=== PATIENT | female | born 1990 | race African-American/Black ===

== ENCOUNTER 2024-01-07 08:17 | Emergency (ER) | payer OTHER, SELFPAY ==
[2024-01-07 08:26] VITALS: BP 98/84; PULSE 113; RESP 16; TEMP 36.2; O2SAT 100
--- NOTE | 2024-01-07 08:27 | ED.URI ---
HPI - URI/Sore Throat General Chief Complaint: Upper Respiratory Infection Stated Complaint: SORE THROAT/CHILLS/BODY ACHES/CONGESTION Time Seen by Provider: 01/07/24 08:35 History of Present Illness HPI Narrative: 33-year-old female presented for complaint of sore throat for 3 days. Endorses neck pain and mild nasal congestion and subjective fever. Denies cough, shortness of breath, wheezing, nausea, vomiting or lethargy. Has not taken anything for symptoms. Denies sick contacts. Related Data Allergies Allergy/AdvReac Type Severity Reaction Status Date / Time No Known Allergies Allergy Verified 01/07/24 08:43 Review of Systems Review of Systems: CONSTITUTIONAL: reports body aches, fever, chills, or sweats. EYES: Denies visual changes, redness, or discharge. ENT: reports rhinorrhea, congestion, sore throat CARDIOVASCULAR: Denies chest pain, palpitations, or edema. RESPIRATORY: Denies dyspnea. GASTROINTESTINAL: Denies abdominal pain, nausea, vomiting, or diarrhea. SKIN: Denies rash, itching, or wounds. MUSCULOSKELETAL: Denies back pain, joint pain, or myalgia. NEUROLOGIC: Denies headache Exam Narrative: GENERAL: mildly Ill-appearing, no acute distress. EYES: conjunctivae clear ENT: Mucous membranes moist. TMs pearly phillips with normal light reflex bilaterally; no tragal tenderness. Oropharynx erythematous, Tonsils enlarged with exudate. No drooling, no hoarseness, no trismus, uvula midline. No tripod positioning, hot potato voice, or soft palate swelling. NECK: Supple. bilateral anterior cervical lymphadenopathy CHEST: Clear to auscultation, breath sounds equal. No respiratory distress, speaks in full sentences. HEART: Regular rate and rhythm. No murmur heard. SKIN: Warm, dry, no rash. NEURO: Alert and oriented x3. Course Course Emergency Course: Patient is aware of diagnosis, understands and agrees to treatment plan. Anticipatory guidance given. Patient agrees to follow-up as directed and is aware of reasons to seek care at the emergency department. Portions of this record may have been created with voice recognition software Level of Care: Express Care Visit MDM - URI/Sore Throat MDM Narrative Medical decision making narrative: POS strep result reviewed with pt. Advise supportive treatments. Patient is appropriate for outpatient treatment and follow-up. Differential Diagnosis Differential diagnosis: Likely upper respiratory infection, viral infection and pharyngitis Discharge Plan Discharge Clinical Impression: Strep pharyngitis Patient Disposition: Home, Self-Care Condition: Stable Instructions: Antibiotic Form, Strep Throat (DC) Additional Instructions: - Take the antibiotic as directed. Fever and sore throat typically resolve within one to three days. Most patients can return to work, school, or daycare after 12 to 24 hours of antibiotic therapy, provided you are fever free and otherwise well. -Eat and drink things that are easy to swallow, like soft foods, cool liquids, tea with honey, or popsicles . -Salt water gargles and/or may use topical anesthetic ( Chloraseptic spray) or lozenges to relieve dryness or throat pain -Alternate Tylenol and ibuprofen as needed for pain and fever as directed. -Frequent hand washing or hand civil engineering designer is one of the best ways to prevent spread of infection. Throw away the toothbrush after 24hours of antibiotic. -Follow up with primary care provider in 2-3 days if condition is not improving -Go to the ER if you have trouble breathing, cannot drink enough fluids, have muffled voice or drooling, difficulty opening your mouth, or severe swelling. Prescriptions: New amoxicillin 500 mg tablet 1,000 mg PO DAILY 10 Days Qty: 20 0RF Follow-up/Referrals: Zaid,Deann Leggett MD [Primary Care Provider] - Stand Alone Forms: Work/School Release IP
[2024-01-07 08:52] LABS: EDINFLUASCREEN Negative; EDINFLUBSCREEN Negative; EDSTREPNEGPOS1 Positive
== END 2024-01-07 08:52 | disposition home or self-care (01) ==
PROVIDERS: Emergency Provider Nurse Practitioner Family; PCP Internal Medicine
DX: J02.0 Streptococcal pharyngitis (principal); Z20.822 Contact with and (suspected) exposure to COVID-19
CPT/HCPCS: 87426; 87804; 87880; 99203; G0463

== ENCOUNTER 2024-02-05 08:09 | Emergency (ER) | payer OTHER, SELFPAY ==
--- NOTE | 2024-02-05 08:23 | ED.FEMALEGU ---
HPI - Female Genitourinary General Chief complaint: Urogenital-Female Stated complaint: Uti Symptoms Source: patient and RN notes reviewed Mode of arrival: ambulatory Limitations: no limitations History of Present Illness HPI Narrative: 33 y/o female presented for c/o pain earlier this perez, under left rib radiating to the back. States pain was dull but strong. Took Tylenol and Gas-x and heating pad. Reports one episode of vomiting this morning. However she states she has been taking semaglutide and endorses associated nausea and constipation this week; increased her dose 2 weeks ago. Reports several episodes of vomiting 4 days ago. Also reports burning with urination x3 days. took azo, last dose last night. LBM this morning, small. Denies hematuria, flank pain, diarrhea, fevers or chills. Related Data Home Medications Medication Instructions Recorded Confirmed brexpiprazole 0.5 mg tablet mg 02/05/24 (Rexulti) duloxetine 60 mg capsule,delayed mg PO 02/05/24 release etonogestrel 0.12 mg-ethinyl vag ring vaginal 02/05/24 estradiol 0.015 mg/24 hr vaginal ring (EnilloRing) omeprazole 20 mg capsule,delayed mg 02/05/24 release ondansetron 4 mg disintegrating mg 02/05/24 tablet Allergies Allergy/AdvReac Type Severity Reaction Status Date / Time No Known Allergies Allergy Verified 02/05/24 08:19 Review of Systems Review of Systems: CONSTITUTIONAL: Denies body aches, fever, chills, or sweats. CARDIOVASCULAR: Denies chest pain, palpitations, or edema. RESPIRATORY: Denies cough or dyspnea. GASTROINTESTINAL: reports abdominal pain Denies nausea, vomiting, or diarrhea. GENITOURINARY: Reports dysuria, denies frequency, urgency, hematuria, flank pain SKIN: Denies rash, itching, or wounds. MUSCULOSKELETAL: Denies back pain or myalgia. PMFSH Comments At time of signature, I have reviewed and agree with nursing past medical, surgical, social and family history unless otherwise noted. Please see nursing chart for further information. There is no relevant family history pertinent to the presenting complaint Exam Narrative: GENERAL: Well-appearing ENT: Mucous membranes pink and moist. NECK: Normal AROM. Supple. CHEST: No respiratory distress. Clear to auscultation. HEART: Regular rate and rhythm. ABDOMEN: Soft, nontender, nondistended, normal active bowel sounds. No CVA tenderness SKIN: Warm, dry, no rash. NEURO: No focal deficits. Alert and oriented x3. Gait steady. PSYCH: Normal affect. Course Course Emergency Course: Patient is aware of diagnosis, understands and agrees to treatment plan. Anticipatory guidance given. Patient agrees to follow-up as directed and is aware of reasons to seek care at the emergency department. Portions of this record may have been created with voice recognition software Level of Care: Express Care Visit Vital Signs Vital signs: Vital Signs Temperature 97.3 F L 02/05/24 08:25 Pulse Rate 77 02/05/24 08:25 Respiratory Rate 16 02/05/24 08:25 Blood Pressure 113/97 H 02/05/24 08:25 Pulse Oximetry 98 02/05/24 08:25 Temperature 97.3 F L 02/05/24 08:25 Pulse Rate 77 02/05/24 08:25 Respiratory Rate 16 02/05/24 08:25 Blood Pressure 113/97 H 02/05/24 08:25 Pulse Oximetry 98 02/05/24 08:25 Reviewed MDM - Female Genitourinary MDM Narrative Medical decision making narrative: Discussed physical exam findings and urine results. No abdominal pain or flank pain at this time. Will culture urine. Advised supportive measures and signs/symptoms to go to the ER. Pt is appropriate for outpt treatment and f/u. Differential Diagnosis Differential diagnosis: Likely urinary tract infection, bacterial vaginosis, cystitis and other Discharge Plan Discharge Clinical Impression: Dysuria Patient Disposition: Home, Self-Care Condition: Stable Instructions: Antibiotic Form, Urinary Tract Infection in Women (ED) [facility]
[2024-02-05 08:25] VITALS: BP 113/97; PULSE 77; RESP 16; TEMP 36.3; O2SAT 98
[2024-02-05 09:12] LABS: EDUAAPPEAR Cloudy; EDUABILI 1+ (Negative); EDUABLOOD Negative (Negative); EDUACOLOR1 Orange; EDUAGLUCOSE Negative (Negative); EDUAKETONE Negative (Negative); EDUALEUKO 1+ (Negative); EDUANITRATE Negative (Negative); EDUAPH 7.5; EDUAPROTEIN 1+ (Negative); EDUAUROBILI 0.2
== END 2024-02-05 08:54 | disposition home or self-care (01) ==
PROVIDERS: Emergency Provider Nurse Practitioner Family; PCP Internal Medicine
DX: R30.0 Dysuria (principal); E28.2 Polycystic ovarian syndrome
CPT/HCPCS: 81003; 87086; 99213; G0463

== ENCOUNTER 2024-02-06 12:33 | Emergency (ER) | payer OTHER, SELFPAY ==
--- NOTE | ~2024-02-06 | CT_ITS ---
EXAMINATION: CT abdomen pelvis w con DATE: 02/06/2024 16:44 INDICATION: Left upper quadrant abdominal pain. TECHNIQUE: Computed tomography (CT) of the abdomen and pelvis was performed with 100 mL Omnipaque 350 intravenous contrast. Automated exposure control and iterative reconstruction technique were employe d. The dose-length product was 1366.44 mGy-cm. COMPARISON: None. FINDINGS: The visualized portions of the lung bases demonstrate mild atelectasis. No pleural effusion . The heart size is normal. No pericardial effusion. There are areas of hypodensity in the liver, lik sergio steatosis. The gallbladder, spleen, pancreas, adrenal glands, and kidneys are normal. There is a ring-shaped device in the vagina. There are no dilated loops of bowel. The cecum is in the left upper quadrant. The appendix is not visualized. There are no pathologically enlarged lymph nodes. There is no free intraperitoneal fluid. The bones are unremarkable. IMPRESSION: 1. No specific etiology for the patient's symptoms. Reviewed, dictated and finalized at location A.
[2024-02-06 12:39] VITALS: BP 134/91; PULSE 95; RESP 16; TEMP 36.6; O2SAT 98
[2024-02-06 15:12] LABS: Basophils Absolute Auto 0.1 K/mm3 (0.0-0.1); Basophils Percent Auto 0.6 % (0.2-1.2); Eosinophils Absolute Auto 0.8 K/mm3 (0-0.3); Eosinophils Percent Auto 6.1 % (0-4.4); Hematocrit 38.9 % (37.0-47.0); Hemoglobin 12.4 g/dL (12.0-15.0); Immature Granulocyte Absolute 0.04 K/mm3 (0.00-0.031); Immature Granulocyte Percent A 0.3 % (0-0.5); Lymphocytes Absolute Auto 4.06 K/mm3 (0.9-3.2); Lymphocytes Percent Auto 33.1 % (18.3-44.2); Mean Corpuscular HGB Conc 31.9 g/dl (32-36); Mean Corpuscular Volume 84.7 fl (80-100); Mean Platelet Volume 11.2 fl (7.4-10.4); Monocytes Absolute Auto 0.4 K/mm3 (0.1-0.6); Monocytes Percent Auto 3.1 % (2.6-8.5); Neutrophils Percent Auto 56.8 % (45.5-73.1); Platelet Count Result 371 k/mm3 (150-375); Red Blood Count 4.59 M/mm3 (4.2-5.4); Red Cell Distribution Width 13.7 % (11.5-14.5); White Blood Count 12.3 K/mm3 (4.5-10.0)
[2024-02-06 15:22] LABS: Add Urine Microscopic? YES; Appearance Urine Clear (Clear); Bacteria Urine 4+ /hpf; Bilirubin Urine Negative (Negative); Blood Urine Negative (Negative); Color Urine Yellow (Yellow); Glucose Urine UA Negative (Negative); Ketones Urine Negative (Negative); Leukocyte Esterase Ur Trace LEU/UL (Negative); Nitrate Urine Positive (Negative); Non Pathogenic Casts 0-2; Protein Urine Negative (Negative); RBC Urine 0-2 /hpf (0-2); Squamous Epithelial Cell Urine Occasional /hpf (Few); pH Urine 6.5 (5.0-9.0)
[2024-02-06 15:25] LABS: Magnesium 2.1 mg/dL (1.6-2.3)
[2024-02-06 15:26] LABS: Alanine Aminotransferase 88 U/L (6-35); Albumin Level 4.2 g/dL (3.5-5.1); Alkaline Phosphatase 209 U/L (38-126); Anion Gap 8 mmol/L (4-12); Aspartate Amino Transferase 68 U/L (14-36); Bilirubin,Total 0.4 mg/dL (0.2-1.3); Blood Urea Nitrogen 6 mg/dL (7-17); Calcium 8.9 mg/dL (8.4-10.2); Carbon Dioxide 28 mmol/L (22-30); Chloride 100 mmol/L (98-107); Estimated CRCL calculation 109 ml/min; Estimated Glomerular Filt Rate > 60; Glucose 104 mg/dL (65-110); Lipase 66 U/L (23-300); Potassium 3.7 mmol/L (3.4-5.0); Sodium 136 mmol/L (137-145)
--- NOTE | 2024-02-06 15:36 | ED.GENADULT ---
HPI - General Adult General Chief complaint: Nausea/Vomiting/Diarrhea Stated complaint: Nausea, vomiting Time Seen by Provider: 02/06/24 15:11 History of Present Illness HPI narrative: Patient is a 33-year-old female who presents to the emergency department this afternoon complaining of nausea and vomiting for the past 5 days. Patient states that she is currently on Rebelsus for wear oz and had her dose increased approximately 3 weeks ago. Two weeks ago she noticed that her nausea which she has been having since starting this medication 3 months ago has been getting worse and on Friday she started to have a vomiting episodes. Patient went to an urgent care on Friday and was prescribed Zofran but has not noticed much improvement of her nausea/vomiting. Denies any chance of. Patient states that she has been having some left upper quadrant abdominal pain radiating to her left back as well. States that she has been having some mild dysuria and the increasing urinary frequency which was concerning for possible UTI and urinalysis at the urgent care few days ago revealed some bacteriuria and urine was sent for culture, patient was not started on antibiotic until culture results per her request as she was concerned that the antibiotics would cause her more of an upset stomach. Denies any fevers or chills at home or any sick contacts at home. No additional symptoms or concerns at this time. Related Data Home Medications Medication Instructions Recorded Confirmed brexpiprazole 0.5 mg tablet 0.5 mg PO DAILY 02/05/24 02/05/24 (Rexulti) duloxetine 60 mg capsule,delayed 60 mg PO BID 02/05/24 02/05/24 release etonogestrel 0.12 mg-ethinyl 1 vag ring vaginal MONTHLY 02/05/24 02/05/24 estradiol 0.015 mg/24 hr vaginal ring (EnilloRing) omeprazole 20 mg capsule,delayed 20 mg PO DAILY 02/05/24 02/05/24 release ondansetron 4 mg disintegrating 4 mg PO PRN PRN Nausea 02/05/24 02/05/24 tablet semaglutide 7 mg tablet (Rybelsus) 7 mg PO DAILY 02/05/24 02/05/24 Allergies Allergy/AdvReac Type Severity Reaction Status Date / Time No Known Allergies Allergy Verified 02/06/24 16:13 Review of Systems Review of Systems: All systems are reviewed and are negative unless stated otherwise in the HPI. Exam Narrative: General: Alert, awake, afebrile, in no acute distress. HEENT: PERRL, no rhinorrhea, no post nasal drip, oropharynx clear. Cardiovascular: Regular rate and rhythm, no murmurs, rubs or gallops, no peripheral edema. Respiratory: Clear to auscultation bilaterally, no tachypnea, no wheezing, no rhonchi, no rubs, no respiratory distress. Abdomen: Soft, nontender, nondistended, no rebound, no guarding, no peritoneal signs. Musculoskeletal: No joint swelling or deformity, normal muscle tone. Skin: No rashes or petechia, no signs of infection. Neurological: Alert and oriented to person, place, and time. Follows all commands. No focal deficits, speech is clear and fluent. Course Vital Signs Vital signs: Vital Signs Temperature 97.9 F 02/06/24 12:39 Pulse Rate 95 02/06/24 12:39 Respiratory Rate 16 02/06/24 12:39 Blood Pressure 134/91 H 02/06/24 12:39 Pulse Oximetry 98 02/06/24 12:39 Oxygen Delivery Room Air 02/06/24 12:39 Temperature 97.9 F 02/06/24 12:39 Pulse Rate 83 02/06/24 16:13 Respiratory Rate 18 02/06/24 16:13 Blood Pressure 142/89 H 02/06/24 16:13 Pulse Oximetry 100 02/06/24 16:13 Oxygen Delivery Room Air 02/06/24 12:39 Medical Decision Making MDM Narrative Medical decision making narrative: The patient was evaluated by myself in the emergency department. History is obtained from patient who is an independent historian and physical exam was performed. External medical records were reviewed at this time. IV was established and pertinent tests were ordered. Patient was administered 1 L IV fluid bolus with normal saline. Patient is currently denies any nausea or
[2024-02-06 15:50] LABS: SPREG INTERNAL CONTROL Positive; Serum Qual hCG NEG
[2024-02-06 16:13] VITALS: BP 142/89; PULSE 83; RESP 18; O2SAT 100
[2024-02-06] MEDS: SODIUM CHLORIDE 0.9% IV 1,000 ML 999 ML IV CONT (16:48)
--- NOTE | 2024-02-06 17:24 | ED.GENADULT ---
HPI - General Adult General Chief complaint: Nausea/Vomiting/Diarrhea Stated complaint: Nausea, vomiting Time Seen by Provider: 02/06/24 15:11 History of Present Illness HPI narrative: Patient is a 33-year-old female who presents to the emergency department this afternoon complaining of nausea and vomiting for the past 4 days. Patient states that she is currently on Rebelsus for weight loss and started taking this medication approximately 3 months ago. 2-3 weeks ago her dose was increased and patient states that ever since she was started this medication she has been suffering from nausea but the vomiting did not start until earlier this week on Friday. Patient is currently prescribed Zofran to help with the nausea and vomiting but states that it has not been helping significantly. Patient states that on Friday she started to have some left upper quadrant abdominal pain radiating to her back. Denies any similar symptoms in the. Otherwise she denies any additional symptoms or concerns at this time. Related Data Home Medications Medication Instructions Recorded Confirmed brexpiprazole 0.5 mg tablet 0.5 mg PO DAILY 02/05/24 02/05/24 (Rexulti) duloxetine 60 mg capsule,delayed 60 mg PO BID 02/05/24 02/05/24 release etonogestrel 0.12 mg-ethinyl 1 vag ring vaginal MONTHLY 02/05/24 02/05/24 estradiol 0.015 mg/24 hr vaginal ring (EnilloRing) omeprazole 20 mg capsule,delayed 20 mg PO DAILY 02/05/24 02/05/24 release ondansetron 4 mg disintegrating 4 mg PO PRN PRN Nausea 02/05/24 02/05/24 tablet semaglutide 7 mg tablet (Rybelsus) 7 mg PO DAILY 02/05/24 02/05/24 Allergies Allergy/AdvReac Type Severity Reaction Status Date / Time No Known Allergies Allergy Verified 02/06/24 16:13 Review of Systems Review of Systems: All systems are reviewed and are negative unless stated otherwise in the HPI. Exam Narrative: General: Alert, awake, afebrile, in no acute distress. HEENT: PERRL, no rhinorrhea, no post nasal drip, oropharynx clear. Cardiovascular: Regular rate and rhythm, no murmurs, rubs or gallops, no peripheral edema. Respiratory: Clear to auscultation bilaterally, no tachypnea, no wheezing, no rhonchi, no rubs, no respiratory distress. Abdomen: Soft, nontender, nondistended, no rebound, no guarding, no peritoneal signs. Musculoskeletal: No joint swelling or deformity, normal muscle tone. Skin: No rashes or petechia, no signs of infection. Neurological: Alert and oriented to person, place, and time. Follows all commands. No focal deficits, speech is clear and fluent. Course Vital Signs Vital signs: Vital Signs Temperature 97.9 F 02/06/24 12:39 Pulse Rate 95 02/06/24 12:39 Respiratory Rate 16 02/06/24 12:39 Blood Pressure 134/91 H 02/06/24 12:39 Pulse Oximetry 98 02/06/24 12:39 Oxygen Delivery Room Air 02/06/24 12:39 Temperature 97.9 F 02/06/24 18:13 Pulse Rate 88 02/06/24 18:13 Respiratory Rate 18 02/06/24 18:13 Blood Pressure 140/88 02/06/24 18:13 Pulse Oximetry 100 02/06/24 18:13 Oxygen Delivery Room Air 02/06/24 12:39 Medical Decision Making Vital Signs Vital Signs: Vital Signs Temperature 97.9 F 02/06/24 12:39 Pulse Rate 95 02/06/24 12:39 Respiratory Rate 16 02/06/24 12:39 Blood Pressure 134/91 H 02/06/24 12:39 Pulse Oximetry 98 02/06/24 12:39 Oxygen Delivery Room Air 02/06/24 12:39 Temperature 97.9 F 02/06/24 18:13 Pulse Rate 88 02/06/24 18:13 Respiratory Rate 18 02/06/24 18:13 Blood Pressure 140/88 02/06/24 18:13 Pulse Oximetry 100 02/06/24 18:13 Oxygen Delivery Room Air 02/06/24 12:39 Lab Data 02/06/24 14:54 02/06/24 14:54 Labs: Lab Results 02/06/24 02/06/24 Range/Units 14:54 14:58 WBC 12.3 H (4.5-10.0) K/mm3 RBC 4.59 (4.2-5.4) M/mm3 Hgb 12.4 (12.0-15.0) g/dL Hct 38.9 (37.0-47.0) % MCV 84.7 (80-100) fl MCH 27.0 (26-34)
[2024-02-06 18:13] VITALS: BP 140/88; PULSE 88; RESP 18; TEMP 36.6; O2SAT 100
== END 2024-02-06 18:16 | disposition home or self-care (01) ==
PROVIDERS: Emergency Provider Emergency Medicine; PCP Internal Medicine
DX: N39.0 Urinary tract infection, site not specified (principal); R11.2 Nausea with vomiting, unspecified; R74.01 Elevation of levels of liver transaminase levels; Z79.899 Other long term (current) drug therapy
CPT/HCPCS: 36415; 74177; 80053; 81001; 83690; 83735; 84703; 85025; 87077; 87086; 87088; 87186; 96360; 99284; J7030; Q9967